=== PATIENT | male | born 1950 | race Caucasian/White ===

== ENCOUNTER 2020-06-08 09:14 | Outpatient (CLI) | payer MEDICARE, SELFPAY | END 2020-06-08 09:15 | disposition home or self-care (01) | PROVIDERS: PCP Nurse Practitioner | DX: Z23 Encounter for immunization (principal) | CPT/HCPCS: 0001A; 91300 ==

== ENCOUNTER 2020-06-29 09:14 | Outpatient (CLI) | payer MEDICARE, SELFPAY | END 2020-06-29 09:15 | disposition home or self-care (01) | LOC: ANHCOVIDVC 09:14 | PROVIDERS: PCP Nurse Practitioner | DX: Z23 Encounter for immunization (principal) | CPT/HCPCS: 0002A; 91300 ==